=== PATIENT | female | born 1990 | race African-American/Black ===

== ENCOUNTER 2017-07-03 17:37 | Emergency (ER) | payer MEDICAID, OTHER ==
[~2017-07-03] VITALS: Ht 175.3 cm; Wt 58.1 kg
[~2017-07-03 17:37] MED LIST: IBUPROFEN600 MG ORAL
[2017-07-03 19:40] LABS: BASOPHILS % (AUTO) 0.6 % (0.0-2.0); EOSINOPHILS % (AUTO) 1.2 % (0.0-3.0); LYMPHOCYTES % (AUTO) 27.8 % (20.0-45.0); MEAN CORPUSCULAR HEMOGLOBIN 28.6 PG (27.0-31.0); MEAN CORPUSCULAR HGB CONC 32.4 G/DL (32.0-36.0); MEAN CORPUSCULAR VOLUME 88 FL (80-99); MONOCYTES % (AUTO) 5.9 % (1.0-10.0); NEUTROPHILS % (AUTO) 64.5 % (45.0-75.0); PLATELET COUNT 249 K/UL (150-450); WHITE BLOOD COUNT 6.6 K/UL (4.8-10.8)
[2017-07-03 19:51] LABS: APPEARANCE,URINE CLEAR; KETONES,URINE NEGATIVE (NEGATIVE); LEUKOCYTE ESTERASE ,URINE NEGATIVE (NEGATIVE); NITRITE,URINE NEGATIVE (NEGATIVE); PH,URINE 7 (4.5-8.0); PROTEIN,URINE NEGATIVE (NEGATIVE); UROBILINOGEN,URINE NORMAL MG/DL (0.0-1.0)
[2017-07-03 20:00] LABS: ANION GAP 11 (5-15); BACTERIA,URINE FEW /HPF; CARBON DIOXIDE 27 mEQ/L (20-30); CHLORIDE 104 mEQ/L (98-107); GLOMERULAR FILTRATION RATE > 60 mL/min (>60); HEMOLYSIS 5; POTASSIUM 4.4 mEQ/L (3.4-4.9); SODIUM 142 mEQ/L (135-145); SQUAMOUS EPITHELIAL CELL,UR FEW /LPF (NONE/OCC); WBC,URINE 0-2 /HPF (0 - 2)
[2017-07-03] MEDS ORDERED: Ketorolac 30mg Inj IV ONE (20:15)
[2017-07-03] MEDS ORDERED: IBUPROFEN600 MG ORAL (20:23)
--- NOTE | 2017-07-03 20:23 | Emergency Room Report ---
History of Present Illness General Chief Complaint: Abdominal Pain Source: Patient Present Illness HPI 27 YO Female presents to the ED c/o vaginal bleeding with 6/10 in severity uterine cramping pain: x 1 week. pt. states she feels weak, and was light headed last . pt. reports hx uterine fibroids, and ovarian cysts. pt. denies dizziness, palpitations, or LOC. Denies fevers, chills, nausea, vomiting. pt. states this is also the time in which she has her cycle. pt. estimates using three super absorbency pads per day. pt. states she has passed several clots. denies hx of blood dyscrasia, or taking blood thinning medications. Denies , CP, AMS, , Changes in Vision, Sensation, paresthesias, or a sudden severe headache. Allergies: Coded Allergies: ACETAMINOPHEN (Unverified Allergy, Unknown, 06/05/15) HYDROCODONE (Unverified Allergy, Unknown, 06/05/15) Patient History Past Medical History: see triage record Past Surgical History: none Pertinent Family History: none Last Menstrual Period: now Now: No Immunizations: UTD Reviewed Nursing Documentation: PMH: Agreed, PSxH: Agreed Nursing Documentation-PMH Past Medical History: No History, Except For Review of Systems All Other Systems: negative except mentioned in HPI Physical Exam Vital Signs Date Time Temp Pulse Resp B/P (MAP) Pulse Ox O2 Delivery O2 Flow Rate FiO2 07/03/17 17:48 99.0 78 18 156/98 98 Room Air Sp02 EP Interpretation: reviewed, normal General Appearance: no apparent distress, alert, GCS 15, non-toxic Head: normocephalic, atraumatic Eyes: bilateral eye normal inspection, bilateral eye PERRL ENT: hearing grossly normal, normal voice Neck: full range of motion, supple/symm/no masses Respiratory: lungs clear, normal breath sounds, speaking full sentences Cardiovascular #1: regular rate, rhythm Gastrointestinal: normal inspection, normal bowel sounds, non tender, non- distended, other - Negative [place] signs, Negative MacBurney's sign, Negative Rosvigns Sign, Negative Psoas, No Peritoneal signs. Rectal: deferred Genitourinary: normal inspection, no CVA tenderness, other - Bilateral adnexal ttp, dark blood in the vaginal vault Musculoskeletal: back normal, gait/station normal, normal range of motion, non- tender Neurologic: alert, oriented x3, responsive, motor strength/tone normal, sensory intact, speech normal Psychiatric: judgement/insight normal, memory normal, mood/affect normal Skin: normal color, no rash, warm/dry, well hydrated Lymphatic: no adenopathy Medical Decision Making PA Attestation Dr. Rios is my supervising Physician whom patient management has been discussed with. Diagnostic Impression: Primary Impression: DUB (dysfunctional uterine bleeding) Additional Impressions: History of uterine fibroid Hx of ovarian cyst ER Course 27 YO Female presents to the ED c/o vaginal bleeding with 6/10 in severity uterine cramping pain: x 1 week. pt. states she feels weak, and was light headed last . pt. reports hx uterine fibroids, and ovarian cysts. pt. denies dizziness, palpitations, or LOC. Denies fevers, chills, nausea, vomiting. pt. states this is also the time in which she has her cycle. pt. estimates using three super absorbency pads per day. pt. states she has passed several clots. denies hx of blood dyscrasia, or taking blood thinning medications. Denies , CP, AMS, , Changes in Vision, Sensation, paresthesias, or a sudden severe headache. Ddx considered but are not limited to: Fibroid, ectopic , Malignancy, Spontaneous , , DUB, hemorrhage, TOA, Anemia, Cardiac pathology just to name a few Vital signs: are WNL, pt. is afebrile. H&PE are most consistent with: with DUB secondary to previously diagnosed ovarian cysts and fibroids. - No obvious evidence of anemia or emergent need for transfusion, will do basic labs and treat for hypovolemia secondary to excessive vaginal bleeding. Pt. presents with US report that was performed 4 weeks ago that depicts fibroid uterus, and PCOS. ORDERS: -CBC: WNL no evidence of anemia/ acute bleed -BMP: WNL- unremarkable other than low glucose. - pt. was given sandwich. -UA: few bacteria, few squamous, no WBC's most consistent with contamination -Urine Hcg: negative --Given pt. just had US performed recently with likely cause of bleeding, I do not believe repeat is necessary, PE does not suggest torsion or TOA at this time. symptoms are bilateral. ED INTERVENTIONS: -IV Acess - 1 liter NS Bolus -d/w pt. the results of lab work. d/w pt. close outpatient OBGYN follow up of her symptoms. Gave pt. ED return precautions for worsening or new symptoms. DISCHARGE: At this time pt. is stable for d/c to home. Will provide printed patient care instructions, and any necessary prescriptions. Care plan and follow up instructions have been discussed with the patient prior to discharge. Labs Test 07/03/17 18:45 White Blood Count 6.6 K/UL (4.8-10.8) Red Blood Count 4.20 M/UL (4.20-5.40) Hemoglobin 12.0 G/DL (12.0-16.0) Hematocrit 37.1 % (37.0-47.0) Mean Corpuscular Volume 88 FL (80-99) Mean Corpuscular Hemoglobin 28.6 PG (27.0-31.0) Mean Corpuscular Hemoglobin Concent 32.4 G/DL (32.0-36.0) Red Cell Distribution Width 13.0 % (11.6-14.8) Platelet Count 249 K/UL (150-450) Mean Platelet Volume 7.0 FL (6.5-10.1) Neutrophils (%) (Auto) 64.5 % (45.0-75.0) Lymphocytes (%) (Auto) 27.8 % (20.0-45.0) Monocytes (%) (Auto) 5.9 % (1.0-10.0) Eosinophils (%) (Auto) 1.2 % (0.0-3.0) Basophils (%) (Auto) 0.6 % (0.0-2.0) Urine Color Pale yellow Urine Appearance Clear Urine pH 7 (4.5-8.0) Urine Specific [place] 1.010 (1.005-1.035) Urine Protein Negative (NEGATIVE) Urine Glucose (UA) Negative (NEGATIVE) Urine Ketones Negative (NEGATIVE) Urine Occult Blood 3+ (NEGATIVE) Urine Nitrite Negative (NEGATIVE) Urine Bilirubin Negative (NEGATIVE) Urine Urobilinogen Normal MG/DL (0.0-1.0) Urine Leukocyte Esterase Negative (NEGATIVE) Urine RBC 2-4 /HPF (0 - 2) Urine WBC 0-2 /HPF (0 - 2) Urine Squamous Epithelial Cells Few /LPF (NONE/OCC) Urine Bacteria Few /HPF (NONE) Urine HCG, Qualitative Negative Sodium Level 142 mEQ/L (135-145) Potassium Level 4.4 mEQ/L (3.4-4.9) Chloride Level 104 mEQ/L (98-107) Carbon Dioxide Level 27 mEQ/L (20-30) Anion Gap 11 (5-15) Blood Urea Nitrogen 12 mg/dL (7-23) Creatinine 1.0 mg/dL (0.5-0.9) Estimat Glomerular Filtration Rate > 60 mL/min (>60) Glucose Level 72 mg/dL (74-106) Calcium Level 9.0 mg/dL (8.6-10.2) Last Vital Signs Date Time Temp Pulse Resp B/P (MAP) Pulse Ox O2 Delivery O2 Flow Rate FiO2 07/03/17 17:48 99.0 78 18 156/98 98 Room Air Disposition: HOME, SELF-CARE Condition: Stable Scripts Ibuprofen* (MOTRIN*) 600 Mg Tablet 600 MG ORAL THREE TIMES A DAY, #30 TAB 0 Refills Prov: Yasmin Ruiz 07/03/17 Referrals: NON PHYSICIAN (PCP) Departure Forms: Return to School Return to School On: Jul 05, 2017 School Release Restrictions: None Return to Full Activity: Jul 05, 2017 Patient Instructions: Ovarian Cyst, Polycystic Ovarian Syndrome, Uterine Fibroids Additional Instructions: Take medications as directed. Follow up with a scientific specialist in 3-5 days, even if your symptoms have resolved. Return sooner to ED if new symptoms occur, or current symptoms become worse. - Please note that this Emergency Department Report was dictated using [employer]hoop punch and coiler operator technology software, occasionally this can lead to erroneous entry secondary to interpretation by the dictation equipment. Yasmin Ruiz Jul 03, 2017 20:22
[2017-07-03 20:45] VITALS: BP 124/75
== END 2017-07-03 20:45 | disposition home or self-care (01) ==
LOC: EMR 19:54
DX: N93.8 Other specified abnormal uterine and vaginal bleeding (principal); Z88.6 Allergy status to analgesic agent; Z87.42 Personal history of other diseases of the female genital tract
CPT/HCPCS: 36415; 80048; 81003; 81025; 85025; 96361; 96374; 99284; J1885